=== PATIENT | female | born 2000 | race Caucasian/White ===

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

== ENCOUNTER 2019-05-28 23:54 | Emergency (ER) | payer SELFPAY ==
[2019-05-29] MEDS ORDERED: Acetaminophen 500 MG Tab PO ONE (00:45)
--- NOTE | 2019-05-29 01:34 | EDM.PDOC ---
ED HPI GENERAL MEDICAL PROBLEM - General Chief Complaint: Headache Stated Complaint: MIGRAINE Time Seen by Provider: 05/29/19 00:25 Source of Information: Reports: Patient History Limitations: Reports: No Limitations - History of Present Illness INITIAL COMMENTS - FREE TEXT/NARRATIVE: States she has a frontal migraine Onset: Today Duration: Getting Worse Location: Reports: Head Quality: Reports: Ache, Burning, Dull Improves with: Reports: None, Cold Therapy Worsens with: Reports: None Associated Symptoms: Reports: No Other Symptoms Head Pain Score (Numeric/FACES): 4 - Related Data Allergies Allergy/AdvReac Type Severity Reaction Status Date / Time blueberry Allergy Hives Verified 05/29/19 00:18 morphine Allergy Airway Verified 05/29/19 00:18 Tightness Home Meds: Home Meds . 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: Neurological History: Reports: Other (See Below) Other Neuro History: fibromyalgia Psychiatric History: Reports: Anxiety, Depression Hematologic History: Reports: Anemia - Infectious Disease History Infectious Disease History: Reports: None - Past Surgical History HEENT Surgical History: Reports: Other (See Below) Other HEENT Surgeries/Procedures: wisdom tooth extraction 2016, 2017 Female Surgical History: Reports: Section Social & Family History - Family History Family Medical History: Noncontributory - Tobacco Use Smoking Status *Q: Never Smoker - Caffeine Use Caffeine Use: Reports: Coffee - Recreational Drug Use Recreational Drug Use: No ED ROS GENERAL - Review of Systems Review Of Systems: Comprehensive ROS is negative, except as noted in HPI. Constitutional: Reports: No Symptoms HEENT: Reports: No Symptoms Respiratory: Reports: No Symptoms Cardiovascular: Reports: No Symptoms Endocrine: Reports: No Symptoms GI/Abdominal: Reports: No Symptoms : Reports: No Symptoms Musculoskeletal: Reports: No Symptoms Skin: Reports: No Symptoms Neurological: Reports: Headache Psychiatric: Reports: No Symptoms Hematologic/Lymphatic: Reports: No Symptoms Immunologic: Reports: No Symptoms - Physical Exam Exam: See Below Exam Limited By: No Limitations General Appearance: Alert, WD/WN, No Apparent Distress Eye Exam: Bilateral Eye: Normal Fundi, Normal Inspection Ears: Normal External Exam, Normal Canal, Normal TMs Nose: Normal Inspection Throat/Mouth: Normal Inspection, Normal Lips Head Exam: Atraumatic, Normocephalic Neck: Normal Inspection, Supple, Non-Tender Respiratory/Chest: No Respiratory Distress, Lungs Clear Cardiovascular: Normal Peripheral Pulses GI/Abdominal: Normal Bowel Sounds (Female) Exam: Deferred Rectal (Female) Exam: Deferred Neuro Exam (Abbreviated): Alert, Oriented, CN II-XII Intact, Normal Cognition, Normal Gait, Normal Reflexes, No Motor/Sensory Deficits Back Exam: Normal Inspection, Full Range of Motion Extremities: Normal Inspection Psychiatric: Normal Affect, Normal Mood Skin Exam: Warm, Dry, Intact Course - Vital Signs Last Recorded V/S: Last Vital Signs Temp 98 F 05/29/19 00:20 Pulse 92 05/29/19 00:20 Resp 16 05/29/19 00:20 BP 134/73 05/29/19 00:20 Pulse Ox 98 05/29/19 00:20 - Orders/Labs/Meds Orders: Active Orders 24 hr Category Date Time Status CULTURE STREP A CONFIRMATION [RM] Stat Lab 05/29/19 00:39 Results STREP SCRN A RAPID W CULT CONF [RM] Stat Lab 05/29/19 00:39 Results Labs: Laboratory Tests 05/29/19 Range/Units 00:15 Urine HCG, Qual POSITIVE (NEGATIVE) Meds: Medications Discontinued Medications Generic Name Dose Route Start Last Admin Trade Name Janette PRN Reason Stop Dose Admin Acetaminophen 1,000 mg 05/29/19 00:45 05/29/19 01:12 Tylenol Extra Strength PO 05/29/19 00:46 1,000 mg ONETIME ONE Administration Departure - Departure Time of Disposition: 01:33 Disposition: Home, Self-Care 01 Condition: Good Clinical Impression: , Cluster headache syndrome - Discharge Information Referrals: PCP,None [Primary Care Provider] - Sepsis Event Note - Evaluation Sepsis Screening Result: No Definite Risk - Focused Exam Vital Signs: Vital Signs Temp Pulse Resp BP Pulse Ox 05/29/19 00:20 98 F 92 16 134/73 98 Date Exam was Performed: 05/29/19 Time Exam was Performed: 01:31 - My Orders Last 24 Hours: My Active Orders 05/29/19 00:39 CULTURE STREP A CONFIRMATION [RM] Stat STREP SCRN A RAPID W CULT CONF [RM] Stat - Assessment/Plan Last 24 Hours: My Active Orders 05/29/19 00:39 CULTURE STREP A CONFIRMATION [RM] Stat STREP SCRN A RAPID W CULT CONF [RM] Stat
== END 2019-05-29 01:53 | disposition home or self-care (01) ==
LOC: MW.ED 23:54
DX: O99.351 Diseases of the nervous system complicating pregnancy, first trimester (principal); G44.009 Cluster headache syndrome, unspecified, not intractable; Z88.5 Allergy status to narcotic agent; Z91.018 Allergy to other foods
CPT/HCPCS: 81025; 87081; 87804; 87880; 99284; A9270; 99283

== ENCOUNTER 2019-12-14 16:48 | Inpatient (IN) | payer BC ==
[2019-12-14] MEDS ORDERED: Sodium Chloride 0.9% 2.5 ML Syringe FLUSH PRN (17:07)
[2019-12-14] MEDS ORDERED: Sodium Chloride 0.9% 10 ML Syringe FLUSH PRN (17:07)
[2019-12-14] MEDS ORDERED: Citric Acid/Sodium Citrate Solution 30 ML Cup PO ONE (17:07)
[2019-12-14] MEDS ORDERED: Sodium Chloride 0.9% 10 ML SDV IV PRN (17:07)
[2019-12-14] MEDS ORDERED: Oxytocin/0.9 % Sodium Chloride 30 UNIT/500 ML BAG IV SCH (17:15)
[2019-12-14] MEDS ORDERED: ceFAZolin 2 GM in Premix Bag 1 BAG IV ONE (19:15)
[2019-12-14] MEDS ORDERED: Citric Acid/Sodium Citrate Solution 30 ML Cup ONE (19:39)
[2019-12-14] MEDS: Lactated Ringers 1,000 ML IV SCH (19:40)
--- NOTE | 2019-12-14 19:44 | PCM.PREANE ---
Preanesthetic Assessment - Anesthesia/Transfusion/Family Hx Anesthesia History: Prior Anesthesia Without Reaction Family History of Anesthesia Reaction: No Transfusion History: No Prior Transfusion(s) Intubation History: Unknown - Review of Systems General: No Symptoms Pulmonary: No Symptoms Cardiovascular: No Symptoms Gastrointestinal: No Symptoms Neurological: No Symptoms Other: Reports: None - Physical Assessment NPO Status Date: 12/14/19 Height: 5 ft 4 in Weight: 99.79 kg ASA Class: 2 Mental Status: Alert & Oriented x3 Airway Class: Mallampati = 2 Dentition: Reports: Normal Dentition ROM/Head Extension: Full Lungs: Clear to Auscultation, Normal Respiratory Effort Cardiovascular: Regular Rate, Regular Rhythm - Lab Values: Laboratory Last Values WBC 12.31 K/uL (4.0-11.0) H 12/14/19 16:50 RBC 4.13 M/uL (4.30-5.90) L 12/14/19 16:50 Hgb 11.1 g/dL (12.0-16.0) L 12/14/19 16:50 Hct 34.5 % (36.0-46.0) L 12/14/19 16:50 MCV 83.5 fL (80.0-98.0) 12/14/19 16:50 MCH 26.9 pg (27.0-32.0) L 12/14/19 16:50 MCHC 32.2 g/dL (31.0-37.0) 12/14/19 16:50 RDW Std Deviation 42.6 fl (28.0-62.0) 12/14/19 16:50 RDW Coeff of Shaun 14 % (11.0-15.0) 12/14/19 16:50 Plt Count 277 K/uL (150-400) 12/14/19 16:50 MPV 9.20 fL (7.40-12.00) 12/14/19 16:50 Nucleated RBC % 0.0 /100WBC 12/14/19 16:50 Nucleated RBCs # 0 K/uL 12/14/19 16:50 SARS Virus RNA (PCR) NEGATIVE (NEGATIVE) 12/14/19 17:30 Blood Type O POSITIVE 12/14/19 16:50 Antibody Screen NEGATIVE 12/14/19 16:50 - Allergies Allergies/Adverse Reactions: Allergies Allergy/AdvReac Type Severity Reaction Status Date / Time blueberry Allergy Hives Verified 12/12/19 15:39 morphine Allergy Airway Verified 12/12/19 15:39 Tightness - Blood Blood Available: Yes - Anesthesia Plan Pre-Op Medication Ordered: None - Acknowledgements Anesthesia Type Planned: Spinal Pt an Appropriate Candidate for the Planned Anesthesia: Yes Alternatives and Risks of Anesthesia Discussed w Pt/Guardian: Yes Pt/Guardian Understands and Agrees with Anesthesia Plan: Yes Additional Comments: PMH: , 39 weeks, IBS, ank spond, fibromyalgia, [id number], COVID neg, PLAN: spinal with dilaudid for intrathecal analgesia PreAnesthesia Questionnaire - Past Health History Medical/Surgical History: Denies Medical/Surgical History HEENT History: Reports: None Cardiovascular History: Reports: None Respiratory History: Reports: None Gastrointestinal History: Reports: Other (See Below) Other Gastrointestinal History: heartburn with Other Genitourinary History: currently on medication for UTI 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: Musculoskeletal History: Reports: Back Pain, Chronic, Fibromyalgia Other Musculoskeletal History: spondylosis Neurological History: Reports: Other (See Below) Other Neuro History: fibromyalgia Psychiatric History: Reports: Anxiety, Depression Endocrine/Metabolic History: Reports: Diabetes, Gestational Hematologic History: Reports: Anemia Immunologic History: Reports: None Oncologic (Cancer) History: Reports: None Dermatologic History: Reports: None - Infectious Disease History Infectious Disease History: Reports: None - Past Surgical History Head Surgeries/Procedures: Reports: None HEENT Surgical History: Reports: Other (See Below) Other HEENT Surgeries/Procedures: wisdom tooth extraction 2015, 2017 Cardiovascular Surgical History: Reports: None Respiratory Surgical History: Reports: None GI Surgical History: Reports: None Female Surgical History: Reports: Section Endocrine Surgical History: Reports: None Neurological Surgical History: Reports: None Musculoskeletal Surgical History: Reports: None Oncologic Surgical History: Reports: None Dermatological Surgical History: Reports: None - SUBSTANCE USE Smoking Status *Q: Never Smoker Tobacco Use Within Last Twelve Months: No Second Hand Smoke Exposure: No Recreational Drug Use History: No - HOME MEDS Home Medications: Home Meds Famotidine [Pepcid] 20 mg PO ASDIRECTED PRN 12/12/19 [History] Ferrous Sulfate [Iron] 1 tab PO DAILY 12/12/19 [History] Pnv No.103/Folic/Om3s/Fish Oil [ Gummies] 1 tab.chew CHEW BID 12/12/19 [History] metFORMIN HCl [Metformin HCl] 500 mg PO BID 12/12/19 [History] nitrofurantoin macrocrystaL [Nitrofurantoin] 1 tab PO BID 12/12/19 [History] - CURRENT (IN HOUSE) MEDS Current Meds: Current Medications Lactated Ringer's (Ringers, Lactated) 1,000 mls @ 500 mls/hr IV BOLUS ASH Oxytocin/Sodium Chloride (Oxytocin 30 Unit/500 Ml-Ns) 30 unit in 500 mls @ 250 mls/hr IV TITRATE ASH Cefazolin Sodium/Dextrose 2 gm (/ Premix) 50 mls @ 100 mls/hr IV ONETIME ONE Stop: 12/14/19 19:44 Sodium Chloride (Saline Flush) 10 ml FLUSH ASDIRECTED PRN PRN Reason: Keep Vein Open Sodium Chloride (Saline Flush) 2.5 ml FLUSH ASDIRECTED PRN PRN Reason: Keep Vein Open Sodium Chloride (Normal Saline) 10 ml IV ASDIRECTED PRN PRN Reason: IV Use Discontinued Medications Citric Acid/Sodium Citrate (Bicitra Solution) 30 ml PO ONETIME ONE Stop: 12/14/19 17:08 Citric Acid/Sodium Citrate (Bicitra Solution) Confirm Administered Dose 30 ml .ROUTE .STK-MED ONE Stop: 12/14/19 19:40
[2019-12-14] MEDS ORDERED: fentaNYL 100 MCG/2 ML SDV IVPUSH PRN (19:45)
[2019-12-14] MEDS ORDERED: Nalbuphine 10 MG/1 ML Vial IVPUSH PRN (19:45)
[2019-12-14] MEDS ORDERED: Acetaminophen/oxyCODONE 325-5 MG Tab PO PRN (19:45)
--- NOTE | 2019-12-14 21:59 | PCM.OPNOTE ---
<Wilbur Cazares - Last Filed: 12/14/19 21:54> - General Post-Op/Procedure Note Date of Surgery/Procedure: 12/14/19 Operative Procedure(s): Repeat low transverse caesarean section Pre Op Diagnosis: at 39/4 weeks, previous x1, GDMA2, mild polyhydramnios Anesthesia Technique: Spinal Primary Surgeon: Elizabeth Lambert Anesthesia Provider: Albert Ross Reason Pipe Organ Builder Was Necessary: Wilbur Cazares MSVI Pathology: intact placenta with membranes Fluid Replacement, Intraop: 1,000 Output, Urine Amount: 300 EBL in mLs: 800 Condition: Good Free Text/Narrative:: Live male born at 2033 weighing 3460 grams APGARs 3, 6 and 7 at 1, 5 and 7 at 10 minutes Pfannenstiel incision covered with chantelle dressing and acticoat silver <Elizabeth Lambert - Last Filed: 12/14/19 22:25> - General Post-Op/Procedure Note Pre Op Diagnosis: 19yo @ 39w4d. Previous X 1. GDMA 2. Mild polyhydraminos Post-Op Diagnosis: same Fluid Replacement, Intraop: 1,500 Complications: None Free Text/Narrative:: Intake & Output 12/14/19 12/14/19 12/14/19 06:59 14:59 22:59 Intake Total 1000 Output Total 300 Balance 700
--- NOTE | 2019-12-14 22:02 | PCM.POSTAN ---
POST ANESTHESIA ASSESSMENT - MENTAL STATUS Mental Status: Alert - RESPIRATORY Respiratory Status: Respiratory Rate WNL - CARDIOVASCULAR CV Status: Pulse Rate WNL - GASTROINTESTINAL GI Status: No Symptoms - POST OP HYDRATION Hydration Status: Adequate & Stable
[2019-12-14] MEDS: Ketorolac 30 MG/ML SDV IVPUSH SCH (23:52)
[2019-12-15] MEDS: Lactated Ringers 1,000 ML IV SCH (01:14)
[2019-12-15] MEDS: Ketorolac 30 MG/ML SDV IVPUSH SCH ×3 (06:19→18:08)
--- NOTE | 2019-12-15 09:27 | PCM48HPAN ---
Post Anesthesia Note - EVALUATION WITHIN 48HRS OF ANESTHETIC Vital Signs in Normal Range: Yes Patient Participated in Evaluation: Yes Respiratory Function Stable: Yes Airway Patent: Yes Cardiovascular Function Stable: Yes Hydration Status Stable: Yes Pain Control Satisfactory: Yes Nausea and Vomiting Control Satisfactory: Yes Mental Status Recovered: Yes Vital Signs: Last Vital Signs Temp 98.4 F 12/15/19 07:45 Pulse 98 12/15/19 09:00 Resp 16 12/15/19 09:00 BP 116/68 12/15/19 07:45 Pulse Ox 96 12/15/19 09:00
[2019-12-15] MEDS ORDERED: Lanolin 100% Cream 7 GM Tube TOP PRN (10:05)
[2019-12-15] MEDS ORDERED: Methylergonovine 0.2 MG/1 ML Amp IM PRN (10:05)
[2019-12-15] MEDS ORDERED: Ondansetron 4 MG/2 ML SDV IVPUSH PRN (10:05)
[2019-12-15] MEDS ORDERED: Oxytocin 10 Units/1 ML SDV IM PRN (10:05)
[2019-12-15] MEDS ORDERED: Ibuprofen 800 MG Tab PO PRN (10:05)
[2019-12-15] MEDS ORDERED: Tranexamic Acid 1,000 MG in Sodium Chloride 0.9% 100 ML IV PRN (10:05)
[2019-12-15] MEDS ORDERED: diphenhydrAMINE 50 MG/ML SDV IVPUSH PRN (10:05)
[2019-12-15] MEDS ORDERED: Acetaminophen/oxyCODONE 325-5 MG Tab PO PRN ×2 (10:05)
[2019-12-15] MEDS ORDERED: Bisacodyl 10 MG Supp RECTAL PRN (10:05)
[2019-12-15] MEDS ORDERED: Misoprostol 200 MCG Tab RECTAL PRN (10:05)
[2019-12-15] MEDS ORDERED: Lactated Ringers 1,000 ML IV SCH (10:15)
[2019-12-15] MEDS ORDERED: Docusate Sodium 100 MG Cap PO SCH (10:15)
--- NOTE | 2019-12-15 15:34 | PCM.PNPP ---
- General Info Date of Service: 12/15/19 Subjective Update: 19 yo P2 s/p repeat , POD 1 , baby transferred to [facility] ambulating , voiding and tolerating regular diet Pain control good Wants to be discharged today Functional Status: Reports: Pain Controlled, Tolerating Diet, Ambulating, Urinating - Review of Systems General: Reports: No Symptoms HEENT: Reports: No Symptoms Pulmonary: Reports: No Symptoms Cardiovascular: Reports: No Symptoms Gastrointestinal: Reports: No Symptoms Genitourinary: Reports: No Symptoms Musculoskeletal: Reports: No Symptoms Skin: Reports: No Symptoms Neurological: Reports: No Symptoms Psychiatric: Reports: No Symptoms - General Info Date of Service: 12/15/19 - Patient Data Vital Signs - Most Recent: Last Vital Signs Temp 36.7 C 12/15/19 12:00 Pulse 113 H 12/15/19 15:15 Resp 18 12/15/19 15:15 BP 116/75 12/15/19 12:00 Pulse Ox 97 12/15/19 15:15 Weight - Most Recent: 99.79 kg I&O - Last 24 Hours: Intake & Output 12/15/19 12/15/19 12/15/19 06:59 14:59 22:59 Intake Total 758 Output Total 300 Balance 758 -300 Lab Results - Last 24 Hours: Laboratory Results - last 24 hr 12/14/19 12/14/19 12/14/19 Range/Units 16:50 16:50 17:30 WBC 12.31 H (4.0-11.0) K/uL RBC 4.13 L (4.30-5.90) M/uL Hgb 11.1 L (12.0-16.0) g/dL Hct 34.5 L (36.0-46.0) % MCV 83.5 (80.0-98.0) fL MCH 26.9 L (27.0-32.0) pg MCHC 32.2 (31.0-37.0) g/dL RDW Std Deviation 42.6 (28.0-62.0) fl RDW Coeff of Shaun 14 (11.0-15.0) % Plt Count 277 (150-400) K/uL MPV 9.20 (7.40-12.00) fL Nucleated RBC % 0.0 /100WBC Nucleated RBCs # 0 K/uL Cord ABG pH (7.18-7.38) Cord ABG Base Excess (-10--2) Cord VBG pH (7.25-7.45) Cord VBG Base Excess (-10--2) SARS Virus RNA (PCR) NEGATIVE (NEGATIVE) Blood Type O POSITIVE Antibody Screen NEGATIVE 12/14/19 12/15/19 Range/Units 20:36 14:14 WBC 12.99 H (4.0-11.0) K/uL RBC 4.14 L (4.30-5.90) M/uL Hgb 11.1 L (12.0-16.0) g/dL Hct 35.1 L (36.0-46.0) % MCV 84.8 (80.0-98.0) fL MCH 26.8 L (27.0-32.0) pg MCHC 31.6 (31.0-37.0) g/dL RDW Std Deviation 43.4 (28.0-62.0) fl RDW Coeff of Shaun 14 (11.0-15.0) % Plt Count 251 (150-400) K/uL MPV 9.20 (7.40-12.00) fL Nucleated RBC % 0.0 /100WBC Nucleated RBCs # 0 K/uL Cord ABG pH 7.233 (7.18-7.38) Cord ABG Base Excess -8 (-10--2) Cord VBG pH 7.283 (7.25-7.45) Cord VBG Base Excess -6 (-10--2) SARS Virus RNA (PCR) (NEGATIVE) Blood Type Antibody Screen Med Orders - Current: Current Medications Bisacodyl (Dulcolax) 10 mg RECTAL ONETIME PRN PRN Reason: Constipation Diphenhydramine HCl (Benadryl) 25 mg IVPUSH Q6H PRN PRN Reason: Itching or Nausea Docusate Sodium (Colace) 100 mg PO BID ASH Last Admin: 12/15/19 11:02 Dose: 100 mg Documented by: Emollient Ointment (Lansinoh Hpa) 0 gm TOP ASDIRECTED PRN PRN Reason: Sore Nipples Fentanyl (Sublimaze) 50 mcg IVPUSH Q5M PRN PRN Reason: Pain (severe 7-10) Stop: 12/15/19 19:45 Lactated Ringer's (Ringers, Lactated) 1,000 mls @ 125 mls/hr IV ASDIRECTED [facility] Tranexamic Acid 1,000 mg/ (Sodium Chloride) 110 mls @ 660 mls/hr IV ONETIME PRN PRN Reason: Bleeding Ibuprofen (Motrin) 800 mg PO Q8H PRN PRN Reason: mild pain or fever Ketorolac Tromethamine (Toradol) 30 mg IVPUSH Q6H [facility] Stop: 12/16/19 00:01 Last Admin: 12/15/19 11:58 Dose: 30 mg Documented by: Methylergonovine Maleate (Methergine) 0.2 mg IM ONETIME PRN PRN Reason: Excessive Vaginal Bleeding Misoprostol (Cytotec) 1,000 mcg RECTAL ONETIME PRN PRN Reason: excessive bleeding Nalbuphine HCl (Nubain) 2.5 mg IVPUSH Q3H PRN PRN Reason: Pruritis Stop: 12/15/19 19:45 Last Admin: 12/14/19 23:40 Dose: 2.5 mg Documented by: Ondansetron HCl (Zofran) 4 mg IVPUSH Q4H PRN PRN Reason: Nausea/Vomiting Oxycodone/Acetaminophen (Percocet 325-5 Mg) 1 tab PO Q4H PRN PRN Reason: Pain (moderate 4-6) Oxycodone/Acetaminophen (Percocet 325-5 Mg) 2 tab PO Q4H PRN PRN Reason: Pain (moderate 4-6) Oxytocin (Pitocin) 10 unit IM ASDIRECTED PRN PRN Reason: Excessive Vaginal Bleeding Sodium Chloride (Saline Flush) 10 ml FLUSH ASDIRECTED PRN PRN Reason: Keep Vein Open Sodium Chloride (Saline Flush) 2.5 ml FLUSH ASDIRECTED PRN PRN Reason: Keep Vein Open Discontinued Medications Citric Acid/Sodium Citrate (Bicitra Solution) 30 ml PO ONETIME ONE Stop: 12/14/19 17:08 Last Admin: 12/14/19 19:43 Dose: 30 ml Documented by: Citric Acid/Sodium Citrate (Bicitra Solution) Confirm Administered Dose 30 ml .ROUTE .STK-MED ONE Stop: 12/14/19 19:40 Last Admin: 12/15/19 08:14 Dose: Not Given Documented by: Lactated Ringer's (Ringers, Lactated) 1,000 mls @ 500 mls/hr IV BOLUS ASH Last Admin: 12/15/19 01:14 Dose: 999 mls/hr Documented by: Oxytocin/Sodium Chloride (Oxytocin 30 Unit/500 Ml-Ns) 30 unit in 500 mls @ 250 mls/hr IV TITRATE ASH Cefazolin Sodium/Dextrose 2 gm (/ Premix) 50 mls @ 100 mls/hr IV ONETIME ONE Stop: 12/14/19 19:44 Last Admin: 12/15/19 08:14 Dose: Not Given Documented by: Oxycodone/Acetaminophen (Percocet 325-5 Mg) 1 tab PO ONETIME PRN PRN Reason: Pain (moderate 4-6) Sodium Chloride (Normal Saline) 10 ml IV ASDIRECTED PRN PRN Reason: IV Use - Infant Interaction Support Person: - Recovery Exam Fundal Tone: Firm Fundal Level: 1 Fingerbreadths Below Umbilicus Fundal Placement: Midline Lochia Amount: Small Lochia Color: Rubra/Red Perineum Description: Intact, Minimal Bruising/Swelling Episiotomy/Laceration: None Bladder Status: Indwelling Catheter in Place Urinary Elimination: Indwelling Catheter - Exam General: Alert HEENT: Pupils Equal Neck: Supple Lungs: Clear to Auscultation, Normal Respiratory Effort Cardiovascular: Regular Rate, Regular Rhythm GI/Abdominal Exam: Normal Bowel Sounds Extremities: Normal Inspection Wound/Incisions: Dressing Dry and Intact Neurological: No New Focal Deficit Psy/Mental Status: Alert - Problem List & Annotations (1) delivery delivered SNOMED Code(s): 055239554 Code(s): O82 - ENCOUNTER FOR DELIVERY WITHOUT INDICATION Status: Acute Current Visit: No - Problem List Review Problem List Initiated/Reviewed/Updated: Yes - My Orders Last 24 Hours: My Active Orders 12/14/19 16:50 RPR (SYPHILIS SERO) W/ RFLX [REF] Routine 12/14/19 17:04 Patient Status [ADT] Routine Resuscitation Status Routine 12/14/19 17:07 Sodium Chloride 0.9% [Saline Flush] 10 ml FLUSH ASDIRECTED PRN Sodium Chloride 0.9% [Saline Flush] 2.5 ml FLUSH ASDIRECTED PRN 12/15/19 00:00 Ketorolac [Toradol] 30 mg IVPUSH Q6H 12/15/19 Breakfast Regular Diet [DIET] 12/15/19 10:05 Acetaminophen/oxyCODONE [Percocet 325-5 MG] 1 tab PO Q4H PRN Acetaminophen/oxyCODONE [Percocet 325-5 MG] 2 tab PO Q4H PRN Ibuprofen [Motrin] 800 mg PO Q8H PRN Lanolin [Lansinoh HPA] See Dose Instructions TOP ASDIRECTED PRN Methylergonovine [Methergine] 0.2 mg IM ONETIME PRN Ondansetron [Zofran] 4 mg IVPUSH Q4H PRN Oxytocin [Pitocin] 10 unit IM ASDIRECTED PRN Tranexamic Acid [Cyklokapron] 1,000 mg Sodium Chloride 0.9% [Normal Saline] 100 ml IV ONETIME bisacodyL [Dulcolax] 10 mg RECTAL ONETIME PRN diphenhydrAMINE [Benadryl] 25 mg IVPUSH Q6H PRN miSOPROStoL [Cytotec] 1,000 mcg RECTAL ONETIME PRN 12/15/19 10:06 Ambulate [RC] PER UNIT ROUTINE Communication Order [RC] PER UNIT ROUTINE Communication Order [RC] Per Unit Routine May Shower [RC] ASDIRECTED RT Incentive Spirometry [RC] Q2HWA Vital Signs [RC] PER UNIT ROUTINE Assess Lochia [WOMSER] Per Unit Routine Assess Uterine Involution [WOMSER] Per Unit Routine Breast Pump [WOMSER] Per Unit Routine Peripheral IV Discontinue [OM.PC] Routine Sequential Compression Device [OM.PC] Per Unit Routine 12/15/19 10:08 Antiembolic Devices [RC] PER UNIT ROUTINE 12/15/19 10:09 Notify Provider Intake and Out [RC] ASDIRECTED Notify Provider Vital Signs [RC] ASDIRECTED 12/15/19 10:15 Docusate Sodium [Colace] 100 mg PO BID Lactated Ringers [Ringers, Lactated] 1,000 ml IV ASDIRECTED - Assessment Assessment:: 19 yo p2 s/p POD1 Normal lochia Met all postoperative goal Will be discharge today to go to [place] - Plan Plan:: Discharge home Remove Josefina dressing in 2 weeks Post operative precautions Recommend Breast pumping
--- NOTE | 2019-12-15 16:43 | OR ---
SURGEON: CHANDA MERIDA DATE OF PROCEDURE: 12/14/2019 PREOPERATIVE DIAGNOSES: 1. A 19-year-old, G2, P 1-0-0-1, at 39 weeks and 4 days, for repeat . 2. Previous . 3. Gestational diabetes mellitus A2. 4. Mild polyhydramnios. 5. Small for gestational age baby. 6. Limited care with late transfer. POSTOPERATIVE DIAGNOSES: 1. A 19-year-old, G2, P 1-0-0-1, at 39 weeks and 4 days, for repeat . 2. Previous . 3. Gestational diabetes mellitus A2. 4. Mild polyhydramnios. 5. Small for gestational age baby. 6. Limited care with late transfer. 7. Short interpregnancy interval. PROCEDURE: Repeat lower transverse section. ANESTHESIA: Spinal. ESTIMATED BLOOD LOSS: 800. IV FLUIDS: 1500. URINE OUTPUT: 300. NOTES AND FINDINGS: A live male delivered at 2032. score of 3, 6, and 7. Weight is 3460 g. BRIEF HISTORY ABOUT THE PATIENT: She is a 19-year-old, G2, P 1-0-0-1, previous 1 year ago, who was late transfer to [facility] at 35 weeks. She had no early uss as per records , so she was dated based ultrasound consistent with LMP , which had a cerebellum of 35 weeks and was consistent with her last menstrual period. The patient developed gestational diabetes, declined insulin, and was managed with metformin for about 2 weeks. She had fair glucose control. She also had mild polyhydramnios and EFW about 16th percentile. The patient came for routine care, had a BPP 02/24. She was counseled for repeat and accepted the risks of , which included infection, bleeding, damage to the bladder or the bowel. She was given opportunity to ask every question and all questions were answered. DESCRIPTION OF PROCEDURE: The patient was taken to the operating room where spinal anesthesia was performed without difficulty. She was prepared and draped in the dorsal supine position with a leftward tilt. A Pfannenstiel skin incision was made with the scalpel and carried down to the fascia with the Bovie. The fascia was incised and extended laterally. The fascia was from the rectus muscles superiorly and inferiorly. The rectus muscle was in the midline all the way to the level of the pubic symphysis. The peritoneum was entered in bluntly. The Rayo retractor was placed to expose the lower uterine segment. Bladder flap was created, incision was made, and the was in cephalic position and was brought to the level of the incision with fundal pressure and delivered without difficulty. Delayed cord clamping was observed. cried after delivery. The cord was clamped and cut, handed over to the pediatric team. Placenta was delivered bimanual massage of the uterine fundus. The uterus was repaired in two layers, first with 0 Vicryl, second with 2-0 Monocryl. Adnexa were inspected and noted to be normal. The gutters were cleaned. The Rayo was removed. The bladder base was also inspected, noted to be hemostatic. The peritoneum was closed with 2-0 Vicryl. The fascia was closed with 0 Vicryl. Subcutaneous fat was also closed with 3 plain gut and the skin was closed with 3-0 Monocryl on a Leonel needle and the incision was covered with MASON dressing. The patient tolerated the procedure well. All instrument and pad counts were correct x2. SEMAJ / DONNY /[id number]
== END 2019-12-15 20:45 | disposition home or self-care (01) | DRG 540 ==
LOC: MW.OB 16:48
PROVIDERS: ADMIT Obstetrics & Gynecology; ATTEND Obstetrics & Gynecology
PROC: 10D00Z1 Extraction of Products of Conception, Low, Open Approach (ICD-10-PCS; principal; 2019-12-14)
DX: O34.211 Maternal care for low transverse scar from previous cesarean delivery (principal); Z37.0 Single live birth; Z3A.39 39 weeks gestation of pregnancy; O24.429 Gestational diabetes mellitus in childbirth, unspecified control; O40.3XX0 Polyhydramnios, third trimester, not applicable or unspecified; Z11.59 Encounter for screening for other viral diseases
CPT/HCPCS: 36415; 51702; 59025; 82803; 85027; 86592; 86850; 86900; 86901; A9270-GY; J1885; J2300; J7120; U0002

== ENCOUNTER 2020-03-18 20:49 | Emergency (ER) | payer SELFPAY ==
--- NOTE | 2020-03-18 21:24 | EDM.PDOC ---
ED HPI GENERAL MEDICAL PROBLEM - General Chief Complaint: Behavioral/Psych Stated Complaint: SUICIDE IDIOLOGY Time Seen by Provider: 03/18/20 20:56 - History of Present Illness INITIAL COMMENTS - FREE TEXT/NARRATIVE: HISTORY AND PHYSICAL: History of present illness: This is a 20-year-old female with a history significant for depression multiply suicide ideation/attempt in the past who presents ER today secondary to having severe depression and episode of suicidal ideation earlier today. Patient reports that she has had thoughts about shooting herself in the head with a gun. Patient reports that over the last couple months she has had episodes where she has been severely depressed and had thoughts about drowning herself as well as thoughts about shooting herself in the head but has never acted upon it. Patient reports that in the past that she has attempted overdoses with her prescription medications in the past. Patient denies any recent fevers, shakes, chills, nausea, vomiting, diarrhea, dysuria, frequency, urgency, chest pain, shortness of breath, abdominal pain. Patient denies any history of hypertension, diabetes, liver, lung, kidney problems. Patient admits to tobacco alcohol drugs. Patient reports that she was out extremely late last night drinking alcohol. Patient is allergic to morphine. Patient reports that she has had C-sections x2 in the past. Review of systems: As per history of present illness and below otherwise all systems reviewed and negative. MDM: Nurses notes reviewed and agree with PFSH, [place], V/S. Any exceptions to agreement documented on physician record. Other than the symptoms associated with the present events, the following is reported with regard to recent health: General: (-) fever. HENT: (-) congestion. Respiratory: (-) cough. Cardiovascular:(-) chest pain. GI: (-) abdominal pain : (-) urinary complaints. Musculoskeletal: (-) other aches or pains. Endocrine: (-) generalized weakness. Neurological: (-) localized weakness. Psychiatric: (-)emotional stress Past medical history: As per history of present illness and as reviewed below otherwise noncontributory. Surgical history: As per history of present illness and as reviewed below otherwise noncon tributory. Social history: No reported history of drug or alcohol abuse. Family history: As per history of present illness and as reviewed below otherwise noncontributory. Physical exam: Constitutional: Patient is oriented to person, place, and time. Appears well- developed and well-nourished. No distress. HEENT: Moist mucous membranes Head: Normocephalic and atraumatic Eyes: Right eye exhibits no discharge. Left eye exhibits no discharge. No scleral icterus Neck: Normal range of motion. No tracheal deviation present. Cardiovascular: Normal rate and regular rhythm. Pulmonary: Effort normal, no respiratory distress. Abdominal: No distention Musculoskeletal: Normal range of motion Neurologic: Alert and oriented to person, place and time. Skin: [place], warm and dry. Psychiatric: Normal mood and affect. Behavior is normal. Judgment and thought content normal. Patient reports that she is still depressed with suicidal ideation. Patient reports that she does have access to guns at home. Nursing note and vital signs have been reviewed Assessment and plan: This is a 20-year-old female who presents ER today secondary to depression and suicidal ideation. Patient will be medically cleared and we will need to transfer patient to a psychiatric facility for further evaluation and assessment and treatment of her depression. At this time, the patient is clinically and hemodynamically stable. Labs have been drawn and have been sent. 10:30 PM: Patient is clinically hemodynamically stable and required transfer. I have discussed the case with the transfer center at [facility]. Case has been accepted by Dr. Jewell. Definitive disposition and diagnosis as appropriate pending reevaluation and review of above. - Related Data Allergies Allergy/AdvReac Type Severity Reaction Status Date / Time blueberry Allergy Hives Verified 03/18/20 20:53 morphine Allergy Airway Verified 03/18/20 20:53 Tightness Home Meds: Home Meds Sertraline [Zoloft] 10 mg PO ASDIRECTED 03/18/20 [History] Past Medical History - Past Health History Medical/Surgical History: Denies Medical/Surgical History HEENT History: Reports: None Cardiovascular History: Reports: None Respiratory History: Reports: None Gastrointestinal History: Reports: Other (See Below) Other Gastrointestinal History: heartburn with Other Genitourinary History: currently on medication for UTI 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: Musculoskeletal History: Reports: Back Pain, Chronic, Fibromyalgia Other Musculoskeletal History: spondylosis Neurological History: Reports: Other (See Below) Other Neuro History: fibromyalgia Psychiatric History: Reports: Anxiety, Depression Endocrine/Metabolic History: Reports: Diabetes, Gestational Hematologic History: Reports: Anemia Immunologic History: Reports: None Oncologic (Cancer) History: Reports: None Dermatologic History: Reports: None - Infectious Disease History Infectious Disease History: Reports: None - Past Surgical History Head Surgeries/Procedures: Reports: None HEENT Surgical History: Reports: Other (See Below) Other HEENT Surgeries/Procedures: wisdom tooth extraction 2015, 2016 Cardiovascular Surgical History: Reports: None Respiratory Surgical History: Reports: None GI Surgical History: Reports: None Female Surgical History: Reports: Section Endocrine Surgical History: Reports: None Neurological Surgical History: Reports: None Musculoskeletal Surgical History: Reports: None Oncologic Surgical History: Reports: None Dermatological Surgical History: Reports: None Social & Family History - Family History Family Medical History: Noncontributory - Tobacco Use Tobacco Use Status *Q: Current Some Day Tobacco User Years of Tobacco use: 5 Packs/Tins Daily: 1 - Caffeine Use Caffeine Use: Reports: Coffee, Soda - Recreational Drug Use Recreational Drug Use: Yes ED ROS GENERAL - Review of Systems Review Of Systems: See Below ED EXAM, GENERAL - Physical Exam Exam: See Below #1 Interpretation EKG Interpretation Comments: EKG: Normal sinus rhythm heart rate of [address]-T wave abnormalities Normal axis No evidence of ST elevation ME As interpreted by ER physician: Abisai Course - Vital Signs Last Recorded V/S: Last Vital Signs Temp 96.6 F L 03/18/20 20:55 Pulse 98 03/18/20 20:55 Resp 18 03/18/20 20:55 BP 141/65 H 03/18/20 20:55 Pulse Ox 100 03/18/20 20:55 - Orders/Labs/Meds Orders: Active Orders 24 hr Category Date Time Status EKG Documentation Completion [RC] STAT Care 03/18/20 21:03 Active ACETAMINOPHEN [CHEM] Stat Lab 03/18/20 22:00 Received COMPREHENSIVE METABOLIC PN,CMP [CHEM] Stat Lab 03/18/20 22:00 Received CORONAVIRUS COVID-19 PCR PHL Stat Lab 03/18/20 22:20 Received CORONAVIRUS COVID-19 RAPID [MOLEC] Stat Lab 03/18/20 22:20 Received DRUG SCREEN, URINE [URCHEM] Stat Lab 03/18/20 21:03 Ordered ETHANOL BLOOD MEDICAL [CHEM] Stat Lab 03/18/20 22:00 Received HCG QUALITATIVE,URINE [URCHEM] Stat Lab 03/18/20 21:03 Ordered MAGNESIUM [CHEM] Stat Lab 03/18/20 22:00 Received SALICYLATE [CHEM] Stat Lab 03/18/20 22:00 Received TSH [CHEM] Stat Lab 03/18/20 22:00 Received UA RFX LI AND CULT IF INDIC [URIN] Stat Lab 03/18/20 21:03 Ordered UA W/MICROSCOPIC [URIN] Stat Lab 03/18/20 21:03 Ordered Labs: Laboratory Tests 03/18/20 Range/Units 22:00 WBC 11.08 H (4.0-11.0) K/uL RBC 4.76 (4.30-5.90) M/uL Hgb 12.4 (12.0-16.0) g/dL Hct 39.5 (36.0-46.0) % MCV 83.0 (80.0-98.0) fL MCH 26.1 L (27.0-32.0) pg MCHC 31.4 (31.0-37.0) g/dL RDW Std Deviation 45.3 (28.0-62.0) fl RDW Coeff of Shaun 15 (11.0-15.0) % Plt Count 315 (150-400) K/uL MPV 9.10 (7.40-12.00) fL Neut % (Auto) 54.6 (48.0-80.0) % Lymph % (Auto) 37.5 (16.0-40.0) % [place] % (Auto) 6.7 (0.0-15.0) % Eos % (Auto) 0.7 (0.0-7.0) % Baso % (Auto) 0.5 (0.0-1.5) % Neut # (Auto) 6.1 H (1.4-5.7) K/uL Lymph # (Auto) 4.2 H (0.6-2.4) K/uL [place] # (Auto) 0.7 (0.0-0.8) K/uL Eos # (Auto) 0.1 (0.0-0.7) K/uL Baso # (Auto) 0.1 (0.0-0.1) K/uL Nucleated RBC % 0.0 /100WBC Nucleated RBCs # 0 K/uL Departure - Departure Time of Disposition: 22:31 Disposition: DC/Tfer to Psych Hosp/Unit [facility] Condition: Good Clinical Impression: MDD (major depressive disorder), Suicidal ideation, At risk for intentional self-harm - Discharge Information Referrals: PCP,None [Primary Care Provider] - Forms: ED Department Discharge Sepsis Event Note (ED) - Evaluation Sepsis Screening Result: No Definite Risk - Focused Exam Vital Signs: Vital Signs Temp Pulse Resp BP Pulse Ox 03/18/20 20:55 96.6 F L 98 18 141/65 H 100 - My Orders Last 24 Hours: My Active Orders 03/18/20 21:03 EKG Documentation Completion [RC] STAT DRUG SCREEN, URINE [URCHEM] Stat HCG QUALITATIVE,URINE [URCHEM] Stat UA RFX LI AND CULT IF INDIC [URIN] Stat UA W/MICROSCOPIC [URIN] Stat 03/18/20 22:00 ACETAMINOPHEN [CHEM] Stat COMPREHENSIVE METABOLIC PN,CMP [CHEM] Stat ETHANOL BLOOD MEDICAL [CHEM] Stat MAGNESIUM [CHEM] Stat SALICYLATE [CHEM] Stat TSH [CHEM] Stat 03/18/20 22:20 CORONAVIRUS COVID-19 PCR PHL Stat CORONAVIRUS COVID-19 RAPID [MOLEC] Stat - Assessment/Plan Last 24 Hours: My Active Orders 03/18/20 21:03 EKG Documentation Completion [RC] STAT DRUG SCREEN, URINE [URCHEM] Stat HCG QUALITATIVE,URINE [URCHEM] Stat UA RFX LI AND CULT IF INDIC [URIN] Stat UA W/MICROSCOPIC [URIN] Stat 03/18/20 22:00 ACETAMINOPHEN [CHEM] Stat COMPREHENSIVE METABOLIC PN,CMP [CHEM] Stat ETHANOL BLOOD MEDICAL [CHEM] Stat MAGNESIUM [CHEM] Stat SALICYLATE [CHEM] Stat TSH [CHEM] Stat 03/18/20 22:20 CORONAVIRUS COVID-19 PCR PHL Stat CORONAVIRUS COVID-19 RAPID [MOLEC] Stat
[2020-03-18 22:36] LABS: BLOOD UREA NITROGEN,BUN 15 mg/dL (7.0-18.0); CARBON DIOXIDE,CO2 27.8 mmol/L (21.0-32.0); CHLORIDE,CL 104 mmol/L (98-107); GLUCOSE RANDOM 100 mg/dL (74-106); POTASSIUM,K 3.8 mmol/L (3.5-5.1); SODIUM,NA 140 mmol/L (136-145)
[2020-03-18 22:37] LABS: ACETAMINOPHEN <2.0 ug/mL
== END 2020-03-19 02:22 ==
LOC: MW.ED 20:49
DX: F32.9 Major depressive disorder, single episode, unspecified (principal); F41.9 Anxiety disorder, unspecified; F17.210 Nicotine dependence, cigarettes, uncomplicated; Z79.899 Other long term (current) drug therapy; Z88.5 Allergy status to narcotic agent; Z91.018 Allergy to other foods; Z20.828 Contact with and (suspected) exposure to other viral communicable diseases
CPT/HCPCS: 36415; 80053; 80305-QW; 80307; 81001; 81025; 83735; 84443; 85025; 87086; 87088; 87186; 93005; 93010; 99284; 99285-25; U0002

== ENCOUNTER 2020-12-31 12:50 | Emergency (ER) | payer BC, OTHER | END 2020-12-31 15:35 | disposition left against medical advice (07) | LOC: MW.ED 12:50 | DX: Z53.21 Procedure and treatment not carried out due to patient leaving prior to being seen by health care provider (principal) ==

== ENCOUNTER 2022-01-03 13:07 | Emergency (ER) | payer BC ==
[2022-01-03] MEDS ORDERED: Famotidine 20 MG Tab PO ONE (13:38)
[2022-01-03] MEDS ORDERED: methylPREDNISolone Sodium Succinate 125 MG/2 ML SDV IM ONE (13:38)
== END 2022-01-03 14:01 | disposition home or self-care (01) ==
LOC: MW.ED 13:07
DX: L50.0 Allergic urticaria (principal); Z88.5 Allergy status to narcotic agent; Z91.018 Allergy to other foods; Z86.16 Personal history of COVID-19
CPT/HCPCS: 96372; 99283; A9270; J2930

== ENCOUNTER 2022-06-10 22:26 | Emergency (ER) | payer BC ==
[2022-06-10] MEDS ORDERED: Sodium Chloride 0.9% 1,000 ML IV ONE (22:27)
[2022-06-10 23:46] LABS: CARBON DIOXIDE,CO2 25.7 mmol/L (21.0-32.0); POTASSIUM,K 3.9 mmol/L (3.5-5.1)
== END 2022-06-11 00:01 | disposition home or self-care (01) ==
LOC: MW.ED 22:26
DX: O03.9 Complete or unspecified spontaneous abortion without complication (principal); Z88.5 Allergy status to narcotic agent; Z88.8 Allergy status to other drugs, medicaments and biological substances
CPT/HCPCS: 36415; 76801; 76801-26; 76813; 76816-26; 80053; 81001; 84702; 85025; 86900; 86901; 99284

== ENCOUNTER 2022-06-17 20:19 | Observation (INO) | payer BC ==
[2022-06-17] MEDS ORDERED: fentaNYL 50 MCG/ML SDV IVPUSH ONE ×2 (20:40→21:15)
[2022-06-17] MEDS ORDERED: Sodium Chloride 0.9% 1,000 ML IV ONE (20:52)
[2022-06-17] MEDS ORDERED: Ondansetron 4 MG/2 ML SDV IVPUSH ONE (20:52)
[2022-06-17 21:41] LABS: CARBON DIOXIDE,CO2 22.2 mmol/L (21.0-32.0)
[2022-06-17] MEDS ORDERED: Misoprostol 200 MCG Tab VAG STA (23:42)
[2022-06-18] MEDS ORDERED: Ibuprofen 600 MG Tab PO PRN (01:14)
== END 2022-06-18 11:45 | disposition home or self-care (01) ==
LOC: MW.ED 20:19 → MW.MS 23:44
PROVIDERS: ADMIT Obstetrics & Gynecology Obstetrics; ATTEND Obstetrics & Gynecology Obstetrics
DX: O03.4 Incomplete spontaneous abortion without complication (principal); Z20.822 Contact with and (suspected) exposure to COVID-19
CPT/HCPCS: 36415; 76817; 80053; 84702; 85014; 85018; 85025; 86850; 86900; 86901; 87635; 96361; 96374; 96375; 96376; 99285; A9270; G0378; J2405; J3010; J7030; 99284; U0002

== ENCOUNTER 2022-11-22 20:38 | Emergency (ER) | payer BC ==
[2022-11-22] MEDS ORDERED: Ondansetron 4 MG/2 ML SDV IVPUSH ONE (21:07)
[2022-11-22] MEDS ORDERED: Sodium Chloride 0.9% 1,000 ML IV ONE (21:07)
[2022-11-22] MEDS ORDERED: Ketorolac 30 MG/ML SDV IVPUSH ONE (21:13)
[2022-11-22 21:18] LABS: BASOPHILS PERCENT AUTO 0.2 % (0.0-1.5); EOSINOPHILS PERCENT AUTO 0.2 % (0.0-7.0); HEMATOCRIT 42.7 % (36.0-46.0); HEMOGLOBIN 13.8 g/dL (12.0-16.0); LYMPHOCYTES ABSOLUTE AUTO 1.6 K/uL (0.6-2.4); LYMPHOCYTES PERCENT AUTO 11.8 % (16.0-40.0); MEAN CORPUSCULAR HEMOGLOBIN 26.8 pg (27.0-32.0); MEAN CORPUSCULAR HGB CONC 32.3 g/dL (31.0-37.0); MEAN CORPUSCULAR VOLUME 82.9 fL (80.0-98.0); MONOCYTES ABSOLUTE AUTO 0.8 K/uL (0.0-0.8); MONOCYTES PERCENT AUTO 5.9 % (0.0-15.0); NEUTROPHILS ABSOLUTE AUTO 11.2 K/uL (1.4-5.7); NEUTROPHILS PERCENT AUTO 81.9 % (48.0-80.0); PLATELET COUNT,PLT 267 K/uL (150-400); RED BLOOD CELL COUNT 5.15 M/uL (4.30-5.90); WHITE BLOOD CELL COUNT,WBC 13.63 K/uL (4.0-11.0)
[2022-11-22] MEDS ORDERED: Iopamidol 755 MG/ML 500 ML Multipack Bottle IVPUSH ONE (21:38)
[2022-11-22 21:43] LABS: A/G RATIO 1.1 (0.9-1.6); BILIRUBIN TOTAL 0.4 mg/dL (0.2-1.0); CARBON DIOXIDE,CO2 27.5 mmol/L (21.0-32.0); CREATININE 0.8 mg/dL (0.6-1.0); EST CRCL DRUG DOSING (CG) 110.33 mL/min; POTASSIUM,K 4.1 mmol/L (3.5-5.1); PROTEIN TOTAL,TP 7.8 g/dL (6.4-8.2)
== END 2022-11-22 22:00 | disposition home or self-care (01) ==
LOC: MW.ED 20:38
DX: K29.00 Acute gastritis without bleeding (principal); Z88.5 Allergy status to narcotic agent; Z91.018 Allergy to other foods; Z86.16 Personal history of COVID-19
CPT/HCPCS: 36415; 80053; 83690; 85025; 96361; 96374; 96375; 99284; J1885; J2405; J7030

== ENCOUNTER 2023-03-24 21:25 | Emergency (ER) | payer BC ==
[2023-03-24] MEDS ORDERED: Cephalexin 500 MG Cap PO ONE (23:25)
== END 2023-03-24 23:38 | disposition home or self-care (01) ==
LOC: MW.ED 21:25
DX: O91.211 Nonpurulent mastitis associated with pregnancy, first trimester (principal); Z86.16 Personal history of COVID-19; Z88.5 Allergy status to narcotic agent; Z91.018 Allergy to other foods; Z3A.11 11 weeks gestation of pregnancy
CPT/HCPCS: 99283; A9270

== ENCOUNTER 2023-09-03 05:18 | Inpatient (IN) | payer MEDICAID ==
[2023-09-03] MEDS ORDERED: Tranexamic Acid IN NACL,ISO-OS 1,000 MG in Premix Bag 1 BAG IV PRN (05:52)
[2023-09-03] MEDS ORDERED: Sodium Chloride 0.9% 2.5 ML Syringe FLUSH PRN (05:52)
[2023-09-03] MEDS ORDERED: Sodium Chloride 0.9% 20 ML SDV IV PRN (05:52)
[2023-09-03] MEDS ORDERED: Carboprost Tromethamine 250 MCG/1 mL Vial IM PRN (05:52)
[2023-09-03] MEDS ORDERED: Water For Irrigation,Sterile 1,000 ML Container IRR PRN (05:52)
[2023-09-03] MEDS ORDERED: Sodium Chloride 0.9% 10 ML Syringe FLUSH PRN (05:52)
[2023-09-03] MEDS ORDERED: Misoprostol 200 MCG Tab PO PRN (05:52)
[2023-09-03] MEDS ORDERED: Lidocaine 1% 50 ML MDV INJECT PRN (05:52)
[2023-09-03] MEDS ORDERED: Methylergonovine 0.2 MG/1 ML Amp IM PRN ×2 (05:52→21:29)
[2023-09-03] MEDS ORDERED: Oxytocin/0.9 % Sodium Chloride 30 UNIT/500 ML BAG IV SCH ×2 (06:00→21:30)
[2023-09-03 06:25] LABS: HEMATOCRIT 29.8 % (37.0-47.0); HEMOGLOBIN 9.4 g/dL (12.0-16.0); MEAN CORPUSCULAR HEMOGLOBIN 25.4 pg (28.0-32.0); MEAN CORPUSCULAR HGB CONC 31.5 g/dL (32.0-36.0); MEAN CORPUSCULAR VOLUME 80.5 fL (83.0-99.0); MEAN PLATELET VOLUME 9.2 fL (9.4-12.3); PLATELET COUNT,PLT 219 K/uL (150-400); WHITE BLOOD CELL COUNT,WBC 8.15 K/uL (3.9-11.3)
[2023-09-03] MEDS: Lactated Ringers 1,000 ML IV SCH ×2 (06:42→06:55)
[2023-09-03] MEDS ORDERED: ceFAZolin 1 GM Vial ONE (07:14)
[2023-09-03] MEDS ORDERED: fentaNYL 100 MCG/2 ML SDV ONE (07:14)
[2023-09-03] MEDS ORDERED: Bupivacaine 0.25% 30 ML SDV ONE (07:14)
[2023-09-03] MEDS ORDERED: Ropivacaine 0.5% 5 MG/ML 30 ML SDV ONE (07:14)
[2023-09-03] MEDS ORDERED: EPINEPHrine 1 MG/1 ML Amp ONE (07:14)
[2023-09-03] MEDS ORDERED: Ondansetron 4 MG/2 ML SDV ONE (07:14)
[2023-09-03] MEDS ORDERED: Morphine PF 10 MG/10 ML SDV ONE (07:14)
[2023-09-03] MEDS ORDERED: Ketorolac 30 MG/ML SDV ONE (07:14)
[2023-09-03] MEDS ORDERED: Oxytocin 10 Units/1 ML SDV ONE (07:14)
[2023-09-03] MEDS ORDERED: Phenylephrine HCl In 0.9% NaCl 1 MG/10 ML Syringe ONE ×4 (07:20→09:37)
[2023-09-03] MEDS ORDERED: Morphine 2 MG/ML SYRINGE IVPUSH PRN (09:11)
[2023-09-03] MEDS ORDERED: droPERidol 5 MG/2 ML SDV IVPUSH PRN (09:11)
[2023-09-03] MEDS ORDERED: ePHEDrine 50 MG/ML SDV IVPUSH PRN (09:11)
[2023-09-03] MEDS ORDERED: Albuterol 0.083% 2.5 MG/3 ML Neb Soln NEB PRN (09:11)
[2023-09-03] MEDS ORDERED: Naloxone 0.4 MG/ML SDV IVPUSH PRN (09:11)
[2023-09-03] MEDS ORDERED: Ondansetron 4 MG/2 ML SDV IVPUSH PRN ×2 (09:11→21:29)
[2023-09-03] MEDS ORDERED: Metoclopramide 10 MG/2 ML SDV IVPUSH PRN (09:11)
[2023-09-03] MEDS ORDERED: fentaNYL 50 MCG/ML SDV IVPUSH PRN (09:11)
[2023-09-03] MEDS: ceFAZolin 2 GM in Sodium Chloride 0.9% 50 ML IV ONE (09:49)
[2023-09-03] MEDS: Citric Acid/Sodium Citrate Solution 30 ML Cup PO ONE (09:49)
[2023-09-03] MEDS: Acetaminophen 1,000 MG in Premix Bag 1 BAG IV SCH (11:08)
[2023-09-03] MEDS: Ketorolac 30 MG/ML SDV IVPUSH ONE (13:53)
[2023-09-03] MEDS ORDERED: HYDROmorphone 0.5 MG/0.5 ML Syringe IVPUSH ONE (15:50)
[2023-09-03] MEDS: HYDROmorphone 1 MG/ML Syringe IVPUSH PRN (21:08)
[2023-09-03] MEDS ORDERED: Lanolin 100% Cream 7 GM Tube TOP PRN (21:29)
[2023-09-03] MEDS ORDERED: Bisacodyl 10 MG Supp RECTAL PRN (21:29)
[2023-09-03] MEDS ORDERED: Oxytocin 10 Units/1 ML SDV IM PRN (21:29)
[2023-09-03] MEDS ORDERED: diphenhydrAMINE 50 MG/ML SDV IVPUSH PRN (21:29)
[2023-09-03] MEDS ORDERED: Misoprostol 200 MCG Tab RECTAL PRN (21:29)
[2023-09-03] MEDS ORDERED: Lactated Ringers 1,000 ML IV SCH (21:30)
[2023-09-03] MEDS: Ketorolac 30 MG/ML SDV IVPUSH SCH (21:58)
[2023-09-04 06:39] LABS: HEMATOCRIT 26.3 % (37.0-47.0); HEMOGLOBIN 8.4 g/dL (12.0-16.0)
[2023-09-04] MEDS: Docusate Sodium 100 MG Cap PO SCH (08:47)
[2023-09-04] MEDS: Acetaminophen/oxyCODONE 325-5 MG Tab PO PRN (23:13)
[2023-09-05] MEDS: Ibuprofen 800 MG Tab PO PRN (01:23)
[2023-09-05] MEDS: Acetaminophen/oxyCODONE 325-5 MG Tab PO PRN (06:17)
== END 2023-09-05 11:35 | disposition home or self-care (01) | DRG 788 ==
LOC: MW.OB 05:18
PROVIDERS: ADMIT Obstetrics & Gynecology Obstetrics; ATTEND Obstetrics & Gynecology Obstetrics
PROC: 10D00Z1 Extraction of Products of Conception, Low, Open Approach (ICD-10-PCS; principal; 2023-09-03 08:00)
DX: O34.211 Maternal care for low transverse scar from previous cesarean delivery (principal); Z37.0 Single live birth; O36.63X0 Maternal care for excessive fetal growth, third trimester, not applicable or unspecified; O99.02 Anemia complicating childbirth; O40.3XX0 Polyhydramnios, third trimester, not applicable or unspecified; Z91.018 Allergy to other foods; Z88.5 Allergy status to narcotic agent; Z3A.39 39 weeks gestation of pregnancy; Z86.16 Personal history of COVID-19; Z98.890 Other specified postprocedural states
CPT/HCPCS: 01961; 36415; 64488; 85014; 85018; 85027; 86592; 86850; 86900; 86901; A9270-GY; J0131; J0171; J0665; J0690; J1100; J1170; J1885; J2274; J2371; J2405; J2590; J2795; J3010; J7120

== ENCOUNTER 2024-02-27 00:46 | Emergency (ER) | payer MEDICAID ==
[2024-02-27 01:17] LABS: BILIRUBIN,URINE NEGATIVE (NEGATIVE); COLOR,URINE YELLOW; GLUCOSE,URINE NEGATIVE (NEGATIVE); KETONES,URINE NEGATIVE (NEGATIVE); LEUKOCYTE ESTERASE,URINE MODERATE (NEGATIVE); NITRITE,URINE NEGATIVE (NEGATIVE); OCCULT BLOOD,URINE MODERATE (NEGATIVE); PROTEIN,URINE TRACE mg/dL (NEGATIVE); UROBILINOGEN,URINE 0.2 EU/dL (<2.0)
[2024-02-27 01:39] LABS: APPEARANCE,URINE HAZY
[2024-02-27 01:40] LABS: BACTERIA,URINE MODERATE (NEGATIVE); EPITHELIAL CELLS,URINE FEW (NONE-FEW)
[2024-02-27 02:11] LABS: BASOPHILS ABSOLUTE AUTO 0.06 K/uL (0.00-0.20); BASOPHILS PERCENT AUTO 0.6 % (0.0-1.0); EOSINOPHILS ABSOLUTE AUTO 0.07 K/uL (0.00-0.45); EOSINOPHILS PERCENT AUTO 0.7 % (0.0-6.0); HEMATOCRIT 36.8 % (37.0-47.0); HEMOGLOBIN 11.8 g/dL (12.0-16.0); IMMATURE GRAN ABSOLUTE AUTO 0.03 K/uL (0.00-0.05); IMMATURE GRAN PERCENT AUTO 0.3 % (0.0-0.4); LYMPHOCYTES ABSOLUTE AUTO 4.19 K/uL (1.00-4.80); MEAN CORPUSCULAR HEMOGLOBIN 25.3 pg (28.0-32.0); MEAN CORPUSCULAR HGB CONC 32.1 g/dL (32.0-36.0); MEAN PLATELET VOLUME 8.6 fL (9.4-12.3); MONOCYTES ABSOLUTE AUTO 0.62 K/uL (0.00-0.80); MONOCYTES PERCENT AUTO 5.9 % (0.0-8.0); NEUTROPHILS ABSOLUTE AUTO 5.51 K/uL (1.80-7.70); NEUTROPHILS PERCENT AUTO 52.5 % (41.0-71.0); PLATELET COUNT,PLT 268 K/uL (150-400); RED BLOOD CELL COUNT 4.66 M/uL (4.10-5.30); WHITE BLOOD CELL COUNT,WBC 10.48 K/uL (3.9-11.3)
[2024-02-27 02:52] LABS: CALCIUM 9.1 mg/dL (8.5-10.1); CARBON DIOXIDE,CO2 24.4 mmol/L (21.0-32.0); CREATININE 0.7 mg/dL (0.6-1.0); EST CRCL DRUG DOSING (CG) 123.93 mL/min
== END 2024-02-27 04:23 | disposition home or self-care (01) ==
LOC: MW.ED 00:46
DX: O03.9 Complete or unspecified spontaneous abortion without complication (principal); Z88.5 Allergy status to narcotic agent; Z91.018 Allergy to other foods; Z79.899 Other long term (current) drug therapy; Z86.16 Personal history of COVID-19; Z3A.08 8 weeks gestation of pregnancy
CPT/HCPCS: 36415; 76817; 76817-26; 80048; 81001; 81025; 84702; 85025; 86900; 86901; 87086; 87088; 87186; 99284

== ENCOUNTER 2024-03-01 22:05 | Emergency (ER) | payer MEDICAID ==
[2024-03-01] MEDS ORDERED: Sodium Chloride 0.9% 2.5 ML Syringe FLUSH PRN (22:20)
[2024-03-01] MEDS ORDERED: Sodium Chloride 0.9% 10 ML Syringe FLUSH PRN (22:20)
[2024-03-01] MEDS: Ondansetron 4 MG/2 ML SDV IVPUSH ONE (22:34)
[2024-03-01] MEDS: Ketorolac 30 MG/ML SDV IVPUSH ONE (22:34)
[2024-03-01] MEDS: Sodium Chloride 0.9% 1,000 ML IV ONE (22:34)
[2024-03-01 22:35] LABS: BASOPHILS ABSOLUTE AUTO 0.06 K/uL (0.00-0.20); BASOPHILS PERCENT AUTO 0.5 % (0.0-1.0); EOSINOPHILS ABSOLUTE AUTO 0.08 K/uL (0.00-0.45); EOSINOPHILS PERCENT AUTO 0.6 % (0.0-6.0); HEMATOCRIT 35.9 % (37.0-47.0); HEMOGLOBIN 11.6 g/dL (12.0-16.0); IMMATURE GRAN ABSOLUTE AUTO 0.04 K/uL (0.00-0.05); IMMATURE GRAN PERCENT AUTO 0.3 % (0.0-0.4); LYMPHOCYTES ABSOLUTE AUTO 4.99 K/uL (1.00-4.80); LYMPHOCYTES PERCENT AUTO 39.9 % (24.0-44.0); MEAN CORPUSCULAR HEMOGLOBIN 25.3 pg (28.0-32.0); MEAN CORPUSCULAR HGB CONC 32.3 g/dL (32.0-36.0); MEAN CORPUSCULAR VOLUME 78.4 fL (83.0-99.0); MEAN PLATELET VOLUME 8.6 fL (9.4-12.3); MONOCYTES ABSOLUTE AUTO 0.79 K/uL (0.00-0.80); MONOCYTES PERCENT AUTO 6.3 % (0.0-8.0); NEUTROPHILS ABSOLUTE AUTO 6.56 K/uL (1.80-7.70); NEUTROPHILS PERCENT AUTO 52.4 % (41.0-71.0); PLATELET COUNT,PLT 303 K/uL (150-400); RED BLOOD CELL COUNT 4.58 M/uL (4.10-5.30); WHITE BLOOD CELL COUNT,WBC 12.52 K/uL (3.9-11.3)
[2024-03-01] MEDS: HYDROmorphone 1 MG/ML Syringe IVPUSH ONE (23:09)
== END 2024-03-02 00:58 | disposition home or self-care (01) ==
LOC: MW.ED 22:05
DX: O03.9 Complete or unspecified spontaneous abortion without complication (principal); Z79.899 Other long term (current) drug therapy; Z75.8 Other problems related to medical facilities and other health care; Z88.5 Allergy status to narcotic agent; Z91.018 Allergy to other foods
CPT/HCPCS: 36415; 84702; 85025; 96361; 96374; 96375; 99284; J1171; J1885; J2405; J7030